=== PATIENT | male | born 1955 | race Caucasian/White ===

== ENCOUNTER → 2023-11-24 08:44 | Outpatient (REF) | payer MEDICARE, OTHER, SELFPAY ==
[2023-11-24 09:58] LABS: % Eosinophils 3.4 % (0-6); % Immature Granulocytes 0.2 % (0-0.5); % Lymphocytes 23.3 % (20.5-51.1); % Monocytes 14.3 % (1.7-9.3); % Neutrophils 57.8 % (42.2-75.2); Absolute Basophils 0.1 10^3/uL (0-0.2); Absolute Eosinophils 0.2 10^3/uL (0-0.7); Absolute Lymphocytes 1.2 10^3/uL (1.2-3.4); Absolute Monocytes 0.7 10^3/uL (0.1-0.6); Absolute Neutrophils 2.9 10^3/uL (1.4-6.5); Hematocrit 41.3 % (39.0-52.0); Hemoglobin 14.4 g/dL (13.0-18.0); Mean Corp Hgb Conc. 34.9 g/dL (33.0-37.0); Mean Corpuscular Volume 91.8 fL (80.0-94.0); Nucleated Red Blood Cells % 0 % (-); Platelet Count 187 10^3/uL (130-400); Red Cell Dist. Width 12.5 % (11.5-14.5)
[2023-11-24 10:05] LABS: APTT 27.6 Sec (23.4-35.0)
[2023-11-24 10:25] LABS: Blood Urea Nitrogen 14 mg/dl (9-20); Carbon Dioxide 28 mmol/L (22-30); Chloride 107 mmol/L (98-107); Glucose 99 mg/dl (70-99); HDL Cholesterol 79 mg/dl; LDL Cholesterol, Calculated 112 mg/dl; Sodium 138 mmol/L (135-145); Total Cholesterol 207 mg/dl (50-199); Triglyceride 84 mg/dl (10-149); Very Low Density Lipoprotein 16 mg/dl (0-30); eGFR > 60.00
== END ==
LOC: REG 08:44
PROVIDERS: ATTENDING PHYSICIAN Internal Medicine Cardiovascular Disease; FAMILY PHYSICIAN Nurse Practitioner Primary Care
DX: R94.39 Abnormal result of other cardiovascular function study (principal); I20.89 Other forms of angina pectoris; I10 Essential (primary) hypertension; R07.89 Other chest pain
CPT/HCPCS: 36415; 80048; 80061; 85025; 85730

== ENCOUNTER 2023-11-25 10:12 | Day surgery (SDC) | payer MEDICARE, OTHER, SELFPAY ==
[2023-11-25] VITALS (16 sets, daily range): BP systolic 116–165; BP diastolic 71–110; BMI 28.7
[2023-11-25] MEDS: LOW STRENGTH ASPIRIN 324 MG PO (11:15)
[2023-11-25] MEDS: NSS 265 ML IV (11:17)
[2023-11-25 13:05] LABS: ACT-LR - POC 284 Seconds (116-155)
[2023-11-25 13:21] LABS: ACT-LR - POC 314 Seconds (116-155)
--- NOTE | 2023-11-25 14:19 | ITS.CL.ANGIO ---
Addendum entered and electronically signed by Rupa Ramirez MD 11/25/23 15:11:
Procedures performed:
4: Physiologic lesion assessment the left circumflex artery
Original Note:
Beef Boner - Angioplasty
Angioplasty
Procedure Report:
LEFT HEART CATHETERIZATION
Date of Procedure: November 25, 2023
Procedures performed:
1: Coronary angiography
2: Left ventricular hemodynamic assessment
3: Percutaneous coronary intervention of the left anterior descending artery with placement of a 3.5 x 28 mm Xience drug-eluting stent postdilated at high-pressure with a 3.75 mm diameter noncompliant balloon at high pressure
Primary Care Physician: Dr. Mitch Love
Primary Manager Of Data: Dr. Karson Weinstein
INDICATION: The patient is a 67-year-old man who presents with crescendo angina. Nuclear perfusion stress test shows LAD territory ischemia.
ACCESS: The patient was prepped and draped in usual sterile fashion. A 7 [place] Slender sheath was placed in the right radial artery using the Seldinger over the wire technique.
HEMODYNAMIC FINDINGS (mmHg):
LV(s/d,EDP): 145/11, 16
Ao(s/d,m): 150/89, 109
ANGIOGRAPHIC FINDINGS:
Single-plane Left Ventriculography in [facility] Projection: Not done. EF 50% by echo in January 2023. Gated nuclear imaging was 40% on recent study November 23.
Coronary Angiography:
Dominance: Right
Left Main: Very large caliber and widely patent.
Left Anterior Descending: The left anterior descending artery is a very large caliber vessel gives rise to 2 major diagonal branches. There is a preocclusive complex ulcerated lesion in the mid LAD involving the takeoff of the first diagonal
branch. The diagonal branch does not appear diseased with only mild ostial stenosis and normal distal flow. The second diagonal and distal LAD is widely patent with normal flow.
Left Circumflex: The left circumflex is a large-caliber nondominant system. The first obtuse marginal branch is a small caliber vessel that is widely patent. There is a smooth 50 to 60% stenosis just after the OM1 takeoff in the mid circumflex.
This is followed by a tapered 20 to 30% stenosis involving the takeoff of a medium caliber OM 2. OM 2 has smooth 30% ostial disease with normal distal flow. The circumflex terminates in a large bifurcating distal obtuse marginal branch and
posterior left ventricular branch that are widely patent with normal flow.
Right Coronary: The right coronary artery is a very large caliber dominant vessel that gives rise to a medium caliber posterior descending artery and posterior left ventricular branch system. There RCA takeoff is somewhat vertical. The arteries
have only very mild luminal irregularities with no focal obstructive disease.
Percutaneous Coronary Intervention (PCI): In light of his clinical presentation and the above angiographic findings I elected to proceed with a PCI of the culprit LAD. The patient was pretreated with aspirin and unfractionated heparin was given. A
loading dose of clopidogrel 600 mg was given orally on the table at the end of the procedure. A 7 [place] EBU 3.75 guide was used to engage the left main. I elected to upsize for the possibility that I may need a 2 stent solution for the
bifurcation lesion. A Hi-Torque floppy wire was easily advanced across the preocclusive stenosis into the LAD. A second Hi-Torque floppy wire was advanced and positioned into the first diagonal branch for protection. A 2.5 x 15 mm balloon was
advanced down the LAD wire and predilation was performed. Follow-up angiography revealed a good result with no plaque shift into the diagonal branch. Next a 3.5 x 28 mm Xience drug-eluting stent was deployed at the lesion. Again the diagonal
branch stayed open. A third BMW wire was advanced down the LAD and into the jailed diagonal through the side struts of the stent. The pinned diagonal wire was removed. Next a 3.75 mm diameter balloon was used to post dilate the stented segment at
16 milagro. This was done in a distal to proximal fashion staying within the stented margins.
FINAL RESULT: 0% in-stent residual stenosis with excellent angiographic result and MARTIR-3 flow in all vessels. No significant plaque shift into the jailed diagonal branch.
Physiologic lesion assessment of the circumflex artery: I then turned my attention to the borderline circumflex lesion. A Omni pressure wire was advanced across the mid circumflex disease and into the distal OM 3. The IFR was 0.99 and 1.0
consistent with no evidence of flow-limiting disease. The wire was removed and angiography showed no change.
Fluoroscopy Time (min): 10.7
Radiation Dose (mGy): 592
DAP (Gy.cm2): 39
Closure device: None. A TR band was applied for hemostasis at the right wrist.
Complications: None.
ASSESSMENT:
1: Successful PCI of the LAD with placement of a drug-eluting stent as described above.
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
3: Normal left ventricular filling pressures.
CONCLUSIONS and RECOMMENDATIONS:
1: Routine post drug-eluting stent medical therapy and monitoring. Dual antiplatelet therapy with aspirin and clopidogrel uninterrupted for at least 6 to 12 months and aspirin 81 mg daily uninterrupted indefinitely.
2: Medical therapy for coronary artery disease and hypertension with clinical follow-up as scheduled.
Rupa Ramirez M.D.
Copy to: Dr. Mitch Love
--- NOTE | 2023-11-25 17:20 | W.PN.UPDATE ---
Update Note
Progress Note Update
67 yo WM s/p PCI LAD x1 (same day). He feels good, no cp, sob, mild left shoulder and rad site discomfort, es diet, voiding, amb w/o dizziness. Rad site stable, EKG SR 1 deg AVB, no new ST changes. He will be on DAPT ASA/Plavix and new to
atrovastatin. Cardiac rehab c/s. Activity restrictions reviewed. He will f/u Dr. Weinstein in 4 weeks. He is for d/c home after 6pm.
Procedures performed:
1: Coronary angiography
2: Left ventricular hemodynamic assessment
3: Percutaneous coronary intervention of the left anterior descending artery with placement of a 3.5 x 28 mm Xience drug-eluting stent postdilated at high-pressure with a 3.75 mm diameter noncompliant balloon at high pressure
Primary Care Physician: Dr. Mitch Love
Primary Lead Performance Support Analyst: Dr. Karson Weinstein
INDICATION: The patient is a 67-year-old man who presents with crescendo angina.� Nuclear perfusion stress test shows LAD territory ischemia.
== END 2023-11-25 18:00 | disposition home or self-care (01) ==
LOC: CATH 10:12
PROVIDERS: ATTENDING PHYSICIAN Internal Medicine Interventional Cardiology; FAMILY PHYSICIAN Nurse Practitioner Primary Care; OTHER PHYSICIAN Internal Medicine Cardiovascular Disease
DX: I25.110 Atherosclerotic heart disease of native coronary artery with unstable angina pectoris (principal); Z79.02 Long term (current) use of antithrombotics/antiplatelets; Z79.82 Long term (current) use of aspirin
CPT/HCPCS: 85347; 93005; 93458; 93571; C1725; C1769; C1874; C1887; C1894; C9600; Q9967